=== PATIENT | female | born 1955 | race Two or more races ===

== ENCOUNTER 2024-03-19 04:02 | Day surgery (SDC) | payer OTHER ==
[~2024-03-19 04:02] MED LIST: GLUMETZA1000 MG; LOSARTAN POTASSI1 GM
[2024-03-19] MEDS ORDERED: CEFAZOLIN SODIUM 1,000 MG VIAL ONE (06:50)
[2024-03-19] MEDS ORDERED: VANCOMYCIN HCL 1,000 MG VIAL ONE (07:08)
[2024-03-19] MEDS ORDERED: LIDOCAINE HCL 1%/EPINEPHRINE 20ML VIAL IJ ONE ×2 (07:08→08:22)
[2024-03-19] MEDS ORDERED: POVIDONE-IODINE 118 ML BOTT TOP ONE (07:33)
[2024-03-19] MEDS ORDERED: CHLORHEXIDINE GLUCONATE 120 ML BOTTLE TOP ONE (08:22)
[2024-03-19] MEDS ORDERED: MACROBID 100 M100 MG PO (09:55)
[2024-03-19] MEDS ORDERED: TRAM1TAB98 PO (09:55)
== END 2024-03-19 13:30 | disposition home or self-care (01) ==
LOC: CIR.AMB 04:02
PROVIDERS: ATTEND Obstetrics & Gynecology Gynecology
DX: N81.2 Incomplete uterovaginal prolapse (principal); N88.4 Hypertrophic elongation of cervix uteri; E11.9 Type 2 diabetes mellitus without complications